=== PATIENT | female | born 1945 | race Caucasian/White ===

== ENCOUNTER → 2017-11-19 06:58 | Outpatient (CLI) | payer MEDICARE, BC, SELFPAY ==
[2017-11-19 07:39] LABS: Hemoglobin A1C% w Est Avg Glu 6.3 % (4.0-6.0)
[2017-11-19 07:41] LABS: BUN Creatinine Ratio 26.3 (6-22); Blood Urea Nitrogen 21 mg/dL (7-17); Cholesterol 179 mg/dL (140-199); Estimated Glomerular Filt Rate > 60.0 mL/min (>60); Glucose 124 mg/dL (80-110); HDL Cholesterol 57 mg/dL (40-60); LDL Cholesterol Calculated 106 mg/dL (<100); Triglycerides 78 mg/dL (35-150)
== END ==
PROVIDERS: PCP Family Medicine; Visit Provider Family Medicine
DX: E78.5 Hyperlipidemia, unspecified (principal)
CPT/HCPCS: 36415; 80061; 82565; 82947; 83036; 84520

== ENCOUNTER → 2018-09-03 09:35 | Outpatient (CLI) | payer MEDICARE, BC, SELFPAY ==
[2018-09-03 10:32] LABS: Add Manual Diff / Slide Review NO; Basophils Absolute Auto 0 /uL (0-100); Basophils Percent Auto 0.5 % (0-2); Eosinophils Absolute Auto 500 /uL (0-450); Eosinophils Percent Auto 7.8 % (2-4); Hematocrit 38.1 % (36-46); Hemoglobin 12.7 g/dL (12.0-16.0); Lymphocytes Absolute Auto 1800 /uL (1100-4500); Lymphocytes Percent Auto 27.9 % (25-40); Mean Corpuscular HGB Conc 33.2 % (30-36); Mean Corpuscular Hemoglobin 30.5 PG (26-34); Mean Corpuscular Volume 92.1 fL (80-100); Monocytes Absolute Auto 600 /uL (0-900); Monocytes Percent Auto 8.8 % (3-14); Neutrophils Absolute Auto 3500 /uL (1500-7000); Platelet Count 281 X10^3/uL (150-400); Red Blood Cell Count 4.14 X10^6/uL (4.0-5.2); Red Cell Distribution Width 13.8 % (11.6-14.8); White Blood Cell Count 6.4 X10^3/uL (4.5-11.0)
[2018-09-03 11:06] LABS: Alanine Aminotransferase 26 IU/L (9-52); Albumin 4.2 g/dL (3.5-5.0); Albumin Globulin Ratio 1.5 (1.0-2.8); Alkaline Phosphatase 67 U/L (38-126); Aspartate Aminotransferase 17 IU/L (14-36); Bilirubin Total 0.4 mg/dL (0.2-1.3); Blood Urea Nitrogen 16 mg/dL (7-17); Calcium 9.2 mg/dL (8.4-10.2); Carbon Dioxide 27 mmol/L (22-32); Chloride 104 mmol/L (98-107); Cholesterol 175 mg/dL (140-199); Estimated Glomerular Filt Rate > 60.0 mL/min (>60); Globulin 2.8 g/dL (1.7-4.1); Glucose 143 mg/dL (80-110); HDL Cholesterol 42 mg/dL (40-60); HEMOLYSIS < 15 (0-50); LDL Cholesterol Calculated 111 mg/dL (<100); Potassium 4.3 mmol/L (3.4-5.1); Sodium 139 mmol/L (137-145); Triglycerides 112 mg/dL (35-150)
[2018-09-03 11:34] LABS: TSH w/ Reflex to FT4 3.35 uIU/mL (0.47-4.68)
== END ==
PROVIDERS: PCP Family Medicine; Visit Provider Family Medicine
DX: E78.5 Hyperlipidemia, unspecified (principal); Z13.6 Encounter for screening for cardiovascular disorders
CPT/HCPCS: 36415; 80053; 80061; 84443; 85025

== ENCOUNTER → 2018-10-07 12:14 | Outpatient (CLI) | payer MEDICARE, BC, SELFPAY ==
[2018-10-07 14:15] LABS: Rubella Antibody IgG > 350.0 IU/mL (>15)
[2018-10-08 18:11] LABS: Rubeola Measles IgG > 300.00 AU/mL (< 25.00)
== END ==
PROVIDERS: PCP Family Medicine; Visit Provider Family Medicine
DX: Z01.84 Encounter for antibody response examination (principal)
CPT/HCPCS: 36415; 86735; 86762; 86765

== ENCOUNTER → 2019-02-20 09:50 | Outpatient (CLI) | payer MEDICARE, BC, SELFPAY ==
[2019-02-20 10:20] LABS: Add Manual Diff / Slide Review NO; Basophils Absolute Auto 100 /uL (0-100); Basophils Percent Auto 0.9 % (0-2); Eosinophils Absolute Auto 300 /uL (0-450); Eosinophils Percent Auto 5.3 % (2-4); Hematocrit 38.2 % (36-46); Hemoglobin 12.8 g/dL (12.0-16.0); Lymphocytes Absolute Auto 1600 /uL (1100-4500); Lymphocytes Percent Auto 25.3 % (25-40); Mean Corpuscular HGB Conc 33.5 % (30-36); Mean Corpuscular Hemoglobin 30.3 PG (26-34); Mean Corpuscular Volume 90.5 fL (80-100); Monocytes Absolute Auto 500 /uL (0-900); Monocytes Percent Auto 7.1 % (3-14); Neutrophils Absolute Auto 3900 /uL (1500-7000); Neutrophils Percent Auto 61.4 % (50-75); Platelet Count 332 X10^3/uL (150-400); Red Blood Cell Count 4.22 X10^6/uL (4.0-5.2); Red Cell Distribution Width 13.8 % (11.6-14.8); White Blood Cell Count 6.4 X10^3/uL (4.5-11.0)
[2019-02-20 10:33] LABS: Alanine Aminotransferase 19 IU/L (9-52); Albumin 4.2 g/dL (3.5-5.0); Albumin Globulin Ratio 1.5 (1.0-2.8); Alkaline Phosphatase 77 U/L (38-126); Aspartate Aminotransferase 21 IU/L (14-36); Bilirubin Total 0.5 mg/dL (0.2-1.3); Blood Urea Nitrogen 16 mg/dL (7-17); Carbon Dioxide 26 mmol/L (22-32); Chloride 105 mmol/L (98-107); Estimated Glomerular Filt Rate > 60.0 mL/min (>60); Globulin 2.8 g/dL (1.7-4.1); Glucose 149 mg/dL (80-110); HEMOLYSIS < 15 (0-50); Lipase 99 U/L (23-300); Potassium 4.1 mmol/L (3.4-5.1); Sodium 140 mmol/L (137-145)
--- NOTE | 2019-02-20 11:01 | DI.CT.S_ITS ---
PROCEDURE: CT ABDOMEN PELVIS W CON INDICATIONS: Epigastric and left lower quadrant pain. TECHNIQUE: After the administration of oral and intravenous contrast, 5 mm thick sections acquired from the diaphragms to the symphysis. 5 mm thick coronal and sagittal reformats were performed. For radiation dose reduction, the following was used: automated exposure control, adjustment of mA and/or kV according to patient size. COMPARISON: [facility], , BARIUM ENEMA W AIR CONTRAST, 02/25/2011, 8:58. [facility], , US PELVIC COMPLETE, 10/12/2018, 11:38. FINDINGS: Image quality: Excellent. ABDOMEN: Lung bases: There is a 2 mm noncalcified pulmonary nodule in the anterior right lower lobe on axial image 3 of series 3. Solid organs: 4 mm hypoechoic focus in the anterior superior left hepatic lobe on axial image 14 of series 2 is too small to fully characterize on this exam but likely represents a hepatic cyst or hemangioma. There is diffuse hypoattenuation consistent with hepatic steatosis. There is a 0.5 cm gallstone at the gallbladder neck. No CT evidence of acute cholecystitis. No intrahepatic or hepatic biliary ductal dilatation identified. The pancreas, spleen, and bilateral adrenal glands are unremarkable. No hydronephrosis or nephrolithiasis. Peritoneum and bowel: No free intraperitoneal air. Normal appendix seen on axial image 55 of series 2. There is diffuse diverticulosis of the descending and sigmoid colon. There is minimal fat stranding surrounding the distal sigmoid colon near the rectosigmoid junction and adjacent multiple diverticula. There is mild wall thickening of the sigmoid colon. No abdominal or pelvic abscess identified. Nodes and vessels: No retroperitoneal or mesenteric adenopathy. Aorta and inferior vena cava are normal in caliber. There is moderate to severe calcified and noncalcified plaque of the abdominal aorta and branch vessels. Miscellaneous: No ventral hernias. PELVIS: Genitourinary: Bladder wall thickness is normal. Uterus is present. There is a ring- shaped foreign body within the vagina, most consistent with a pessary. Miscellaneous: No inguinal hernias or adenopathy. Bones: No suspicious bony lesions. No vertebral body compression fractures. There are mild multilevel degenerative changes of the lumbar spine. IMPRESSION: 1. Minimal fat stranding surrounding the distal sigmoid colon with mild wall thickening of the sigmoid colon, which may represent a low-grade acute diverticulitis or colitis in the appropriate clinical setting. No abscess or free intraperitoneal air to suggest perforation identified. 2. 0.5 cm gallstone at the gallbladder neck, without evidence of acute cholecystitis. No intrahepatic or extra hepatic biliary ductal dilatation. 3. Findings consistent with diffuse hepatic steatosis. 4 mm hypoattenuating focus in the anterior superior left hepatic lobe is too small to fully characterize on this exam but likely represents a hepatic cyst or hemangioma; consider MRI if there is continued clinical concern. 4. 2 mm noncalcified pulmonary nodule of the anterior right lower lobe. Consider followup CT of the chest in 12 months if the patient has a history of risk factors for development of lung malignancy (such as a history of smoking). Dictated by: Thad Goss M.D. on 02/20/2019 at 21:36 Approved by: Thad Goss M.D. on 02/20/2019 at 22:13
== END ==
PROVIDERS: PCP Family Medicine; Visit Provider Family Medicine
DX: R10.13 Epigastric pain (principal); R10.32 Left lower quadrant pain; K80.80 Other cholelithiasis without obstruction; R91.1 Solitary pulmonary nodule
CPT/HCPCS: 36415; 74177; 80053; 83690; 85025; Q9967

== ENCOUNTER → 2019-03-07 08:09 | Outpatient (CLI) | payer MEDICARE, BC, SELFPAY ==
[2019-03-07 09:23] LABS: Hemoglobin A1C% w Est Avg Glu 6.4 % (4.0-6.0)
[2019-03-07 09:31] LABS: BUN Creatinine Ratio 22.5 (6-22); Blood Urea Nitrogen 18 mg/dL (7-17); Calcium 9.3 mg/dL (8.4-10.2); Carbon Dioxide 25 mmol/L (22-32); Chloride 105 mmol/L (98-107); Estimated Glomerular Filt Rate > 60.0 mL/min (>60); Glucose 133 mg/dL (80-110); HEMOLYSIS < 15 (0-50); Potassium 4.2 mmol/L (3.4-5.1); Sodium 138 mmol/L (137-145)
== END ==
PROVIDERS: PCP Family Medicine; Visit Provider Family Medicine
DX: E11.9 Type 2 diabetes mellitus without complications (principal)
CPT/HCPCS: 36415; 80048; 83036

== ENCOUNTER → 2019-12-18 15:19 | Outpatient (CLI) | payer MEDICARE, BC, SELFPAY ==
--- NOTE | 2019-12-18 15:26 | DI.RAD.S_ITS ---
PROCEDURE: XR FOOT LT MIN 3V INDICATIONS: heel pain TECHNIQUE: 3 views of the foot were acquired. COMPARISON: None. FINDINGS: Bones: No fractures or dislocations. No suspicious bony lesions. Mild osteoarthritis first MTP joint, without trauma. Soft tissues: No tibiotalar joint effusion. Achilles tendon appears normal. IMPRESSION: Source of calcaneal region pain is not found. Mild osteoarthritis at the first MTP joint. Dictated by: Abe Sorto M.D. on 12/18/2019 at 15:52 Approved by: Abe Sorto M.D. on 12/18/2019 at 15:53
== END ==
PROVIDERS: PCP Family Medicine; Referring Provider Family Medicine; Visit Provider Family Medicine
DX: M79.672 Pain in left foot (principal); M19.072 Primary osteoarthritis, left ankle and foot
CPT/HCPCS: 73630

== ENCOUNTER → 2020-02-23 08:23 | Outpatient (CLI) | payer MEDICARE, BC, SELFPAY ==
[2020-02-23 09:02] LABS: Add Manual Diff / Slide Review NO; Basophils Absolute Auto 0 /uL (0-100); Basophils Percent Auto 0.5 % (0-2); Eosinophils Absolute Auto 400 /uL (0-450); Eosinophils Percent Auto 5.7 % (2-4); Hematocrit 37.6 % (36-46); Hemoglobin 12.7 g/dL (12.0-16.0); Lymphocytes Absolute Auto 1500 /uL (1100-4500); Lymphocytes Percent Auto 22.5 % (25-40); Mean Corpuscular HGB Conc 33.7 % (30-36); Mean Corpuscular Hemoglobin 30.9 PG (26-34); Mean Corpuscular Volume 91.6 fL (80-100); Monocytes Absolute Auto 500 /uL (0-900); Monocytes Percent Auto 7.3 % (3-14); Neutrophils Absolute Auto 4300 /uL (1500-7000); Platelet Count 299 X10^3/uL (150-400); Red Cell Distribution Width 13.9 % (11.6-14.8); White Blood Cell Count 6.7 X10^3/uL (4.5-11.0)
[2020-02-23 09:15] LABS: Hemoglobin A1C% w Est Avg Glu 6.9 % (4.0-6.0)
[2020-02-23 09:20] LABS: Alanine Aminotransferase 23 IU/L (<35); Albumin 4.2 g/dL (3.5-5.0); Albumin Globulin Ratio 1.5 (1.0-2.8); Alkaline Phosphatase 67 U/L (38-126); Aspartate Aminotransferase 21 IU/L (14-36); BUN Creatinine Ratio 23.5 (6-22); Bilirubin Total 0.5 mg/dL (0.2-1.3); Blood Urea Nitrogen 19 mg/dL (7-17); Calcium 9.3 mg/dL (8.4-10.2); Carbon Dioxide 30 mmol/L (22-32); Chloride 106 mmol/L (98-107); Cholesterol 164 mg/dL (140-199); Estimated Glomerular Filt Rate > 60.0 mL/min (>60); Globulin 2.8 g/dL (1.7-4.1); Glucose 140 mg/dL (80-110); HDL Cholesterol 42 mg/dL (40-60); HEMOLYSIS < 15 (0-50); LDL Cholesterol Calculated 98 mg/dL (<100); Potassium 4.4 mmol/L (3.4-5.1); Sodium 140 mmol/L (137-145); Triglycerides 119 mg/dL (35-150)
[2020-02-23 09:49] LABS: TSH w/ Reflex to FT4 4.41 uIU/mL (0.47-4.68)
== END ==
PROVIDERS: PCP Family Medicine; Referring Provider Family Medicine; Visit Provider Family Medicine
DX: E11.9 Type 2 diabetes mellitus without complications (principal); E78.5 Hyperlipidemia, unspecified
CPT/HCPCS: 36415; 80053; 80061; 83036; 84443; 85025

== ENCOUNTER → 2020-08-29 10:51 | Outpatient (CLI) | payer MEDICARE, BC, SELFPAY ==
[2020-08-29 11:29] LABS: Creatinine Urine Random 84.7 mg/dL
[2020-08-29 11:37] LABS: Microalbumin Urine Random < 0.6 mg/dL (0-1.6)
[2020-08-29 12:10] LABS: Hemoglobin A1C% w Est Avg Glu 6.4 % (4.0-6.0)
[2020-08-29 12:13] LABS: BUN Creatinine Ratio 25.6 (6-22); Blood Urea Nitrogen 20 mg/dL (7-17); Calcium 9.8 mg/dL (8.4-10.2); Carbon Dioxide 23 mmol/L (22-32); Chloride 106 mmol/L (98-107); Estimated Glomerular Filt Rate > 60.0 mL/min (>60); Glucose 115 mg/dL (80-110); HEMOLYSIS < 15 (0-50); Potassium 4.1 mmol/L (3.4-5.1); Sodium 138 mmol/L (137-145)
== END ==
PROVIDERS: PCP Family Medicine; Referring Provider Family Medicine; Visit Provider Family Medicine
DX: E11.9 Type 2 diabetes mellitus without complications (principal); E78.5 Hyperlipidemia, unspecified
CPT/HCPCS: 36415; 80048; 82043; 82570; 83036

== ENCOUNTER → 2021-02-19 08:07 | Outpatient (CLI) | payer MEDICARE, BC, SELFPAY ==
[2021-02-19 09:40] LABS: Alanine Aminotransferase 18 IU/L (<35); Albumin 3.8 g/dL (3.5-5.0); Albumin Globulin Ratio 1.6 (1.0-2.8); Alkaline Phosphatase 67 U/L (38-126); Aspartate Aminotransferase 20 IU/L (14-36); BUN Creatinine Ratio 21.9 (6-22); Bilirubin Total 0.4 mg/dL (0.2-1.3); Blood Urea Nitrogen 16 mg/dL (7-17); Calcium 9.2 mg/dL (8.4-10.2); Carbon Dioxide 27 mmol/L (22-32); Chloride 108 mmol/L (98-107); Cholesterol 209 mg/dL (140-199); Estimated Glomerular Filt Rate > 60.0 mL/min (>60); Globulin 2.4 g/dL (1.7-4.1); Glucose 123 mg/dL (80-110); HDL Cholesterol 56 mg/dL (40-60); HEMOLYSIS < 15 (0-50); LDL Cholesterol Calculated 135 mg/dL (<100); Potassium 4.6 mmol/L (3.4-5.1); Sodium 139 mmol/L (137-145); Total Protein 6.2 g/dL (6.3-8.2); Triglycerides 88 mg/dL (35-150)
[2021-02-19 09:46] LABS: Add Manual Diff / Slide Review NO; Basophils Absolute Auto 0 /uL (0-100); Basophils Percent Auto 0.4 % (0-2); Eosinophils Absolute Auto 300 /uL (0-450); Eosinophils Percent Auto 5.1 % (2-4); Hematocrit 37.1 % (36-46); Hemoglobin 12.3 g/dL (12.0-16.0); Lymphocytes Absolute Auto 1900 /uL (1100-4500); Mean Corpuscular Hemoglobin 30.4 PG (26-34); Mean Corpuscular Volume 91.9 fL (80-100); Monocytes Absolute Auto 600 /uL (0-900); Neutrophils Absolute Auto 3800 /uL (1500-7000); Neutrophils Percent Auto 56.5 % (50-75); Platelet Count 278 X10^3/uL (150-400); Red Blood Cell Count 4.04 X10^6/uL (4.0-5.2); Red Cell Distribution Width 13.6 % (11.6-14.8); White Blood Cell Count 6.7 X10^3/uL (4.5-11.0)
[2021-02-19 10:19] LABS: TSH w/ Reflex to FT4 3.37 uIU/mL (0.47-4.68)
== END ==
PROVIDERS: PCP Family Medicine; Referring Provider Family Medicine; Visit Provider Family Medicine
DX: E11.9 Type 2 diabetes mellitus without complications (principal); E78.2 Mixed hyperlipidemia
CPT/HCPCS: 36415; 80053; 80061; 83036; 84443; 85025

== ENCOUNTER → 2021-08-20 07:15 | Outpatient (CLI) | payer MEDICARE, BC, SELFPAY ==
[2021-08-20 08:39] LABS: Hemoglobin A1C% w Est Avg Glu 6.5 % (4.0-6.0)
[2021-08-20 08:53] LABS: BUN Creatinine Ratio 26.9 (6-22); Blood Urea Nitrogen 21 mg/dL (7-17); Calcium 9.4 mg/dL (8.4-10.2); Carbon Dioxide 33 mmol/L (22-32); Chloride 104 mmol/L (98-107); Cholesterol 185 mg/dL (140-199); Estimated Glomerular Filt Rate > 60.0 mL/min (>60); Glucose 144 mg/dL (80-110); HDL Cholesterol 52 mg/dL (40-60); HEMOLYSIS < 15 (0-50); LDL Cholesterol Calculated 114 mg/dL (<100); Potassium 4.4 mmol/L (3.4-5.1); Sodium 139 mmol/L (137-145); Triglycerides 94 mg/dL (35-150)
[2021-08-20 10:27] LABS: Microalbumi Creatinin Ratio Ur 11.4 ug/mg CR (<30); Microalbumin Urine Random 0.7 mg/dL (0-1.6)
== END ==
PROVIDERS: PCP Family Medicine; Referring Provider Family Medicine; Visit Provider Family Medicine
DX: E11.9 Type 2 diabetes mellitus without complications (principal); E78.2 Mixed hyperlipidemia; Z00.00 Encounter for general adult medical examination without abnormal findings; Z13.9 Encounter for screening, unspecified
CPT/HCPCS: 36415; 80048; 80061; 82043; 82570; 83036

== ENCOUNTER → 2022-02-19 07:05 | Outpatient (CLI) | payer MEDICARE, BC, SELFPAY ==
[2022-02-19 07:57] LABS: Add Manual Diff / Slide Review NO; Basophils Absolute Auto 100 /uL (0-100); Basophils Percent Auto 0.9 % (0-2); Eosinophils Absolute Auto 500 /uL (0-450); Hematocrit 36.1 % (36-46); Hemoglobin 12.2 g/dL (12.0-16.0); Lymphocytes Absolute Auto 1800 /uL (1100-4500); Lymphocytes Percent Auto 26.9 % (25-40); Mean Corpuscular HGB Conc 33.8 % (30-36); Mean Corpuscular Hemoglobin 30.8 PG (26-34); Mean Corpuscular Volume 91.1 fL (80-100); Monocytes Absolute Auto 600 /uL (0-900); Monocytes Percent Auto 8.7 % (3-14); Neutrophils Absolute Auto 3700 /uL (1500-7000); Neutrophils Percent Auto 56.5 % (50-75); Platelet Count 274 X10^3/uL (150-400); Red Blood Cell Count 3.96 X10^6/uL (4.0-5.2); Red Cell Distribution Width 13.6 % (11.6-14.8); White Blood Cell Count 6.5 X10^3/uL (4.5-11.0)
[2022-02-19 08:16] LABS: Hemoglobin A1C% w Est Avg Glu 6.5 % (4.0-6.0)
[2022-02-19 08:48] LABS: Alanine Aminotransferase 17 IU/L (<35); Albumin Globulin Ratio 1.4 (1.0-2.8); Alkaline Phosphatase 61 U/L (38-126); Aspartate Aminotransferase 21 IU/L (14-36); Bilirubin Total 0.5 mg/dL (0.2-1.3); Blood Urea Nitrogen 20 mg/dL (7-17); Carbon Dioxide 26 mmol/L (22-32); Chloride 106 mmol/L (98-107); Cholesterol 169 mg/dL (140-199); Estimated Glomerular Filt Rate > 60 mL/min (>60); Globulin 2.8 g/dL (1.7-4.1); Glucose 126 mg/dL (80-110); HDL Cholesterol 53 mg/dL (40-60); HEMOLYSIS < 15 (0-50); LDL Cholesterol Calculated 99 mg/dL (<100); Potassium 4.1 mmol/L (3.4-5.1); Sodium 138 mmol/L (137-145); Total Protein 6.8 g/dL (6.3-8.2); Triglycerides 83 mg/dL (35-150)
[2022-02-19 09:15] LABS: Thyroid Stimulating Hormone 5.09 uIU/mL (0.47-4.68)
== END ==
PROVIDERS: PCP Family Medicine; Referring Provider Family Medicine; Visit Provider Family Medicine
DX: E11.9 Type 2 diabetes mellitus without complications (principal); E78.2 Mixed hyperlipidemia
CPT/HCPCS: 36415; 80053; 80061; 83036; 84443; 85025

== ENCOUNTER → 2022-08-17 06:44 | Outpatient (CLI) | payer MEDICARE, BC, SELFPAY ==
[2022-08-17 08:13] LABS: Add Manual Diff / Slide Review NO; Basophils Absolute Auto 0 /uL (0-100); Basophils Percent Auto 0.6 % (0-2); Eosinophils Absolute Auto 300 /uL (0-450); Eosinophils Percent Auto 4.7 % (2-4); Hematocrit 37.2 % (36-46); Hemoglobin 12.7 g/dL (12.0-16.0); Lymphocytes Absolute Auto 1800 /uL (1100-4500); Mean Corpuscular HGB Conc 34.1 % (30-36); Mean Corpuscular Hemoglobin 30.7 PG (26-34); Mean Corpuscular Volume 90.2 fL (80-100); Monocytes Absolute Auto 600 /uL (0-900); Neutrophils Absolute Auto 4400 /uL (1500-7000); Neutrophils Percent Auto 61.7 % (50-75); Platelet Count 321 X10^3/uL (150-400); Red Blood Cell Count 4.12 X10^6/uL (4.0-5.2); Red Cell Distribution Width 13.3 % (11.6-14.8); White Blood Cell Count 7.1 X10^3/uL (4.5-11.0)
[2022-08-17 08:23] LABS: Hemoglobin A1C% w Est Avg Glu 6.4 % (4.0-6.0)
[2022-08-17 08:34] LABS: Alanine Aminotransferase 20 IU/L (<35); Albumin 4.2 g/dL (3.5-5.0); Albumin Globulin Ratio 1.4 (1.0-2.8); Alkaline Phosphatase 76 U/L (38-126); Aspartate Aminotransferase 22 IU/L (14-36); BUN Creatinine Ratio 19.2 (6-22); Bilirubin Total 0.5 mg/dL (0.2-1.3); Blood Urea Nitrogen 15 mg/dL (7-17); Calcium 9.2 mg/dL (8.4-10.2); Carbon Dioxide 28 mmol/L (22-32); Chloride 104 mmol/L (98-107); Cholesterol 187 mg/dL (140-199); Estimated Glomerular Filt Rate > 60 mL/min (>60); Glucose 134 mg/dL (80-110); HDL Cholesterol 44 mg/dL (40-60); HEMOLYSIS < 15 (0-50); LDL Cholesterol Calculated 122 mg/dL (<100); Potassium 4.3 mmol/L (3.4-5.1); Sodium 140 mmol/L (137-145); Total Protein 7.2 g/dL (6.3-8.2); Triglycerides 106 mg/dL (35-150)
[2022-08-17 09:02] LABS: TSH w/ Reflex to FT4 4.96 uIU/mL (0.47-4.68)
[2022-08-17 09:29] LABS: Free T4, Direct Thyroxine 1.13 ng/dL (0.78-2.19)
== END ==
PROVIDERS: PCP Family Medicine; Referring Provider Family Medicine; Visit Provider Family Medicine
DX: E11.9 Type 2 diabetes mellitus without complications (principal); E78.2 Mixed hyperlipidemia
CPT/HCPCS: 36415; 80053; 80061; 83036; 84439; 84443; 85025

== ENCOUNTER → 2023-03-29 14:49 | Outpatient (CLI) | payer MEDICARE, BC, SELFPAY ==
[2023-03-29 16:35] LABS: Creatinine Urine Random 75.3 mg/dL
[2023-03-29 16:42] LABS: Microalbumin Urine Random < 0.6 mg/dL (0-1.6)
[2023-03-29 16:51] LABS: Thyroid Stimulating Hormone 3.42 uIU/mL (0.47-4.68)
[2023-03-29 20:50] LABS: Hemoglobin A1C% w Est Avg Glu 6.5 % (4.0-6.0)
== END ==
PROVIDERS: PCP Family Medicine; Referring Provider Family Medicine; Visit Provider Family Medicine
DX: E11.9 Type 2 diabetes mellitus without complications (principal); R89.9 Unspecified abnormal finding in specimens from other organs, systems and tissues
CPT/HCPCS: 36415; 82043; 82570; 83036; 84443

== ENCOUNTER → 2023-09-28 13:45 | Outpatient (CLI) | payer MEDICARE, BC, SELFPAY | PROVIDERS: PCP Family Medicine; Referring Provider Family Medicine; Visit Provider Family Medicine | DX: E11.9 Type 2 diabetes mellitus without complications (principal) | CPT/HCPCS: 36415; 83036 ==

== ENCOUNTER → 2023-10-21 11:00 | Outpatient (CLI) | payer MEDICARE, BC, SELFPAY ==
--- NOTE | 2023-10-21 11:01 | DI.CT.S_ITS ---
PROCEDURE: CT CHEST WO CON INDICATIONS: cough hx of breast cancer TECHNIQUE: Noncontrast 5 mm thick sections acquired from the pulmonary apices to the posterior costophrenic angles. 1 mm lung window, 5 mm thick coronal and sagittal and 7 mm axial MIP reformats were then acquired. For radiation dose reduction, the following was used: automated exposure control, adjustment of mA and/or kV according to patient size. COMPARISON: [facility], CT, CT ABDOMEN PELVIS W CON, 02/20/2019, 11:09. FINDINGS: Image quality: Diagnostic. Evaluation of the solid parenchymal organs is limited without IV contrast. Lower Neck: No enlarged lymph nodes. Thyroid: No thyroid nodules which require sonographic follow up, per consensus guidelines. Axillae: No enlarged lymph nodes. Chest Wall: Breast implants. Bones: No suspicious osseous lesion. Lungs and Pleura: No pneumothorax or pleural effusions. No consolidation or suspicious nodules. Several calcified granulomas. A few pulmonary nodules measuring 0.4 cm or less. Heart: Heart size is normal. [id number] coronary artery calcifications. No pericardial effusion. Thoracic Vessels: The aorta and pulmonary arteries demonstrate normal size. Mediastinum and Mckenna: No enlarged lymph nodes. Esophagus: No wall thickening. No hiatal hernia. Upper Abdomen: Gallstone measuring 0.9 cm. IMPRESSION: No metastatic disease. No adenopathy seen. Gallstone. Dictated by: Angelo Matthews M.D. on 10/21/2023 at 12:10 Approved by: Angelo Matthews M.D. on 10/21/2023 at 12:16
== END ==
PROVIDERS: PCP Family Medicine; Referring Provider Family Medicine; Visit Provider Family Medicine
DX: C50.919 Malignant neoplasm of unspecified site of unspecified female breast (principal); R05.3 Chronic cough; I25.10 Atherosclerotic heart disease of native coronary artery without angina pectoris; K80.20 Calculus of gallbladder without cholecystitis without obstruction; R91.8 Other nonspecific abnormal finding of lung field
CPT/HCPCS: 71250

== ENCOUNTER → 2024-03-22 08:01 | Outpatient (CLI) | payer MEDICARE, BC, SELFPAY ==
[2024-03-22 09:37] LABS: Add Manual Diff / Slide Review NO; Basophils Absolute Auto 0 /uL (0-100); Basophils Percent Auto 0.6 % (0-2); Eosinophils Absolute Auto 700 /uL (0-450); Eosinophils Percent Auto 9.8 % (2-4); Hematocrit 36.4 % (36-46); Hemoglobin 12.2 g/dL (12.0-16.0); Lymphocytes Absolute Auto 1700 /uL (1100-4500); Lymphocytes Percent Auto 23.7 % (25-40); Mean Corpuscular HGB Conc 33.6 % (30-36); Mean Corpuscular Hemoglobin 30.4 PG (26-34); Mean Corpuscular Volume 90.5 fL (80-100); Monocytes Absolute Auto 600 /uL (0-900); Neutrophils Absolute Auto 4000 /uL (1500-7000); Neutrophils Percent Auto 56.9 % (50-75); Platelet Count 324 X10^3/uL (150-400); Red Blood Cell Count 4.02 X10^6/uL (4.0-5.2); Red Cell Distribution Width 14.5 % (11.6-14.8); White Blood Cell Count 7.1 X10^3/uL (4.5-11.0)
[2024-03-22 09:59] LABS: Alanine Aminotransferase 18 IU/L (<35); Albumin 3.8 g/dL (3.5-5.0); Albumin Globulin Ratio 1.4 (1.0-2.8); Alkaline Phosphatase 72 U/L (38-126); Aspartate Aminotransferase 21 IU/L (14-36); BUN Creatinine Ratio 24.3 (6-22); Bilirubin Total 0.5 mg/dL (0.2-1.3); Blood Urea Nitrogen 17 mg/dL (7-17); Calcium 9.2 mg/dL (8.4-10.2); Carbon Dioxide 26 mmol/L (22-32); Chloride 106 mmol/L (98-107); Cholesterol 185 mg/dL (140-199); Estimated Glomerular Filt Rate > 60 mL/min (>60); Globulin 2.7 g/dL (1.7-4.1); Glucose 139 mg/dL (80-110); HDL Cholesterol 52 mg/dL (40-60); HEMOLYSIS < 15 (0-50); LDL Cholesterol Calculated 112 mg/dL (<100); Potassium 4.5 mmol/L (3.4-5.1); Sodium 136 mmol/L (137-145); Total Protein 6.5 g/dL (6.3-8.2); Triglycerides 105 mg/dL (35-150)
[2024-03-22 10:48] LABS: Free T4, Direct Thyroxine 0.91 ng/dL (0.78-2.19)
[2024-03-22 11:18] LABS: Hemoglobin A1C% w Est Avg Glu 6.6 % (4.0-6.0)
== END ==
PROVIDERS: PCP Family Medicine; Referring Provider Family Medicine; Visit Provider Family Medicine
DX: C50.919 Malignant neoplasm of unspecified site of unspecified female breast (principal); E11.9 Type 2 diabetes mellitus without complications; K57.90 Diverticulosis of intestine, part unspecified, without perforation or abscess without bleeding
CPT/HCPCS: 36415; 80053; 80061; 83036; 84439; 84443; 85025

== ENCOUNTER → 2024-04-03 09:50 | Outpatient (CLI) | payer MEDICARE, BC, SELFPAY ==
--- NOTE | 2024-04-03 09:52 | DI.US.S_ITS ---
PROCEDURE: US PELVIC COMPLETE INDICATIONS: FAMILY HX UTERINE CANCER TECHNIQUE: Real-time scanning was performed of the pelvic organs, with image documentation. Additional endovaginal scanning was necessary due to incomplete visualization of the adnexal and endometrial structures by transabdominal scanning. COMPARISON: [facility], US, US PELVIC COMPLETE, 02/02/2020, 8:55. FINDINGS: Uterus: Uterus is anteverted and normal in size at 5.1 x 3.5 x 3.7 cm. The myometrium is homogeneous. The endometrium measures 4.9 mm combined thickness. No uterine fibroids. Ovaries: The ovaries are not seen. Other: No pathologic free abdominal or pelvic fluid. IMPRESSION: Normal appearance of the uterus and endometrium. The ovaries are not visualized. We strive to produce accurate, complete, and clear reports of imaging services. To assist us in improving patient care, this report was composed using standard report templates and voice recognition software. Therefore, it may contain abnormal punctuation, insertions and/or omissions. Occasional wrong-word or sound-alike substitutions may occur. Though we review the report and make efforts to correct it, we do recommend that the report be read carefully in proper context to recognize any text inaccuracies. Dictated by: Kwabena Martinez M.D. on 04/03/2024 at 11:26 Approved by: Kwabena Martinez M.D. on 04/03/2024 at 11:45
== END ==
PROVIDERS: PCP Family Medicine; Referring Provider Family Medicine; Visit Provider Family Medicine
DX: D25.9 Leiomyoma of uterus, unspecified (principal)
CPT/HCPCS: 76830; 76856

== ENCOUNTER → 2024-09-14 15:22 | Outpatient (CLI) | payer MEDICARE, BC, SELFPAY ==
[2024-09-14 16:28] LABS: Hemoglobin A1C% w Est Avg Glu 6.5 % (4.0-6.0)
[2024-09-14 16:46] LABS: BUN Creatinine Ratio 23.9 (6-22); Blood Urea Nitrogen 22 mg/dL (7-17); Calcium 9.4 mg/dL (8.4-10.2); Carbon Dioxide 25 mmol/L (22-32); Chloride 104 mmol/L (98-107); Estimated Glomerular Filt Rate > 60 mL/min (>60); Glucose 146 mg/dL (80-110); HEMOLYSIS < 15 (0-50); Potassium 4.1 mmol/L (3.4-5.1); Sodium 138 mmol/L (137-145)
[2024-09-14 17:16] LABS: TSH w/ Reflex to FT4 5.67 uIU/mL (0.47-4.68)
[2024-09-14 18:35] LABS: Free T4, Direct Thyroxine 0.98 ng/dL (0.78-2.19)
== END ==
PROVIDERS: PCP Family Medicine; Referring Provider Family Medicine; Visit Provider Family Medicine
DX: E11.9 Type 2 diabetes mellitus without complications (principal); E78.2 Mixed hyperlipidemia; F33.41 Major depressive disorder, recurrent, in partial remission; E03.8 Other specified hypothyroidism
CPT/HCPCS: 36415; 80048; 83036; 84439; 84443

== ENCOUNTER 2024-09-14 17:12 | Emergency (ER) | payer MEDICARE, BC, SELFPAY ==
[2024-09-14] VITALS (9 sets, daily range): BP systolic 145–196; BP diastolic 68–110; PULSE 60–89; RESP 10–24; TEMP 37; O2SAT 94–97; BMI 31.6
--- NOTE | 2024-09-14 17:27 | DI.RAD.S_ITS ---
PROCEDURE: XR CHEST 1V INDICATIONS: chest pain TECHNIQUE: One view of the chest was acquired. COMPARISON: None. FINDINGS: Surgical changes and devices: None. Lungs and pleura: Increased pulmonary markings. Mediastinum: Mediastinal contours appear normal. Heart size is enlarged. Bones and chest wall: No suspicious bony lesions. Overlying soft tissues appear unremarkable. IMPRESSION: Suspected mild pulmonary edema. Dictated by: Leroy Ferrari M.D. on 09/14/2024 at 17:52 Approved by: Leroy Ferrari M.D. on 09/14/2024 at 17:53
--- NOTE | 2024-09-14 17:30 | EKG_ITS ---
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
[2024-09-14 17:52] LABS: Add Manual Diff / Slide Review NO; Basophils Absolute Auto 100 /uL (0-100); Basophils Percent Auto 0.5 % (0-2); Eosinophils Absolute Auto 600 /uL (0-450); Hematocrit 35.4 % (36-46); Hemoglobin 11.9 g/dL (12.0-16.0); Lymphocytes Absolute Auto 2300 /uL (1100-4500); Lymphocytes Percent Auto 20.5 % (25-40); Mean Corpuscular HGB Conc 33.5 % (30-36); Mean Corpuscular Hemoglobin 30.4 PG (26-34); Mean Corpuscular Volume 90.5 fL (80-100); Monocytes Absolute Auto 900 /uL (0-900); Monocytes Percent Auto 8.1 % (3-14); Neutrophils Absolute Auto 7300 /uL (1500-7000); Neutrophils Percent Auto 65.9 % (50-75); Platelet Count 308 X10^3/uL (150-400); Red Blood Cell Count 3.91 X10^6/uL (4.0-5.2); Red Cell Distribution Width 13.5 % (11.6-14.8)
[2024-09-14 18:05] LABS: Prothrombin Time 11.3 SECONDS (9.4-12.5)
[2024-09-14 18:07] LABS: PTT Partial Thromboplastin Tim 38 SECONDS (25.1-36.5)
[2024-09-14 18:12] LABS: Alanine Aminotransferase 20 IU/L (<35); Albumin 4.5 g/dL (3.5-5.0); Albumin Globulin Ratio 1.5 (1.0-2.8); Alkaline Phosphatase 93 U/L (38-126); Aspartate Aminotransferase 22 IU/L (14-36); BUN Creatinine Ratio 25.3 (6-22); Bilirubin Total 0.5 mg/dL (0.2-1.3); Blood Urea Nitrogen 22 mg/dL (7-17); Calcium 9.4 mg/dL (8.4-10.2); Carbon Dioxide 24 mmol/L (22-32); Chloride 105 mmol/L (98-107); Creatine Kinase 55 U/L (30-135); Estimated Glomerular Filt Rate > 60 mL/min (>60); Glucose 167 mg/dL (80-110); HEMOLYSIS < 15 (0-50); Lipase 204 U/L (23-300); Magnesium 2.1 mg/dL (1.6-2.3); Sodium 139 mmol/L (137-145); Total Protein 7.5 g/dL (6.3-8.2)
[2024-09-14 18:23] LABS: NT-proBNP (BNP-Adult 18+) 181 pg/mL (<450); Troponin I < 0.012 ng/mL (0.01-0.034)
[2024-09-14] MEDS: ASPIRIN 81 MG CHEW TAB 324 MG PO (20:24)
[2024-09-14 20:30] LABS: Troponin I < 0.012 ng/mL (0.01-0.034)
--- NOTE | 2024-09-14 21:36 | ED_ITS ---
HPI - Chest Pain General Chief Complaint: Chest Pain Stated Complaint: chest and lt shoulder pain x 2 days Time Seen by Provider: 09/14/24 21:35 Source: patient, RN notes reviewed and old records reviewed Mode of arrival: Ambulatory Limitations: no limitations Limitations: no limitations History of Present Illness HPI narrative: 79-year-old female history of diabetes, dyslipidemia, asthma Left-sided chest pain radiates in her arm and around to the back. Patient states has been persistent for 2 or 3 days has not resolved until earlier. She states started with some indigestion with radiation to the back in the interscapular area has been worse with movement of her left shoulder. She states being still seems to help it. She was not had any shortness of breath. No fevers or chills. No nausea or vomiting no issues with bowel movements no numbness tingling weakness of extremities. Swelling of her extremities. Has not had similar symptoms in the past. No trauma or injuries. States that she takes a statin, uses inhaler and Flonase, metformin and daily antihistamine, she takes losartan for renal protective not blood pressure. No estrogen. Has had history of bilateral mastectomy in 1989 for breast cancer. No prior cardiac issues or interventions. No prior surgeries. No known drug allergies. No tobacco has 1 or 2 alcoholic drinks daily no recreational drugs other than occasional edible. Patient notes pain has since resolved. Related Data Previous Rx's Medication Instructions Recorded estradiol 2 mg (7.5 mcg/24 hour) 7.5 mcg vaginal Q 3 MONTHS #1 ea 05/13/20 vaginal ring (Estring) losartan 25 mg tablet 25 mg PO DAILY #90 tabs 12/20/23 metformin 500 mg tablet 1,000 mg (2 x 500 mg) PO DAILY 12/20/23 #180 tabs ciclopirox 8 % topical solution 1 applic topical BEDTIME 6 months 04/03/24 #6.6 mL albuterol sulfate 90 mcg/actuation 2 puff inhalation Q4-6H PRN for 08/28/24 aerosol inhaler wheezing #6.7 grams atorvastatin 20 mg tablet 20 mg PO DAILY #90 tabs 08/28/24 fluticasone 100 mcg-salmeterol 50 See Rx Instructions .Route 08/28/24 mcg/dose blistr powdr for .COMPLEX #180 grams inhalation (Wixela Inhub) sertraline 50 mg tablet 50 mg PO DAILY #90 tabs 08/28/24 zaleplon 5 mg capsule 5 mg PO BEDTIME PRN sleep #10 caps 09/05/24 Allergies Allergy/AdvReac Type Severity Reaction Status Date / Time No Known Drug Allergies Allergy Verified 03/27/24 09:29 Review of Systems Review of Systems ROS Unobtainable: All systems reviewed & are unremarkable except as noted in HPI and below Patient History Medical History Diabetes type 2, controlled Diverticulosis Knee pain (~2014) Tuberculosis Abnormal Pap smear of cervix (~1977) Asthma (1946) Chicken pox (1947) Mumps (~1954) Rubella (1964) Measles Eczema Depression (~1954) Hayfever (1946) Breast cancer (1991) Endometrial thickening on ultrasound (~2017) Surgical History Status post hysteroscopy (09/17/17) Status post D&C (09/17/17) Anesthesia History of mastectomy (1991) History of tonsillectomy (1947) Family History Father Stroke Grandmother Breast cancer Colon cancer Liver disease Mother Breast cancer Heart disease High cholesterol Grandfather Heart disease Rheumatic fever Grandmother Stroke Sister Age: 72 Diabetes mellitus Brother No problems noted. Grandfather Heart attack Sister Poor balance Social History marital status: Smoking Status: Never smoker alcohol intake: current substance use type: does not use Smoking Status: Never smoker Exam Narrative Exam Narrative: GENERAL: Alert and oriented x three, HEENT: Head normocephalic, atraumatic, EOMI, pupils reactive, face symmetric, moist mucous membranes NECK: Supple, full range of motion CARDIOVASCULAR: Regular rate and rhythm without murmurs, rubs or gallops. No JVD. No edema. RESPIRATORY: Breath sounds equal bilaterally, no wheezes rales or rhonchi. No tachypnea or accessory muscle use. ABDOMEN: Soft, nontender. Normoactive bowel sounds all 4 quadrants. No guarding or rebound, rigidity, no mass : No CVA tenderness EXTREMITIES: Normal range of motion, no clubbing or edema. Neurovascularly intact. +pulses bilateral upper extremities. NEUROLOGICAL: Cranial nerves II through XII grossly intact. Moving all extremities SKIN: Warm, dry, no petechiae, no rashes or lesions. Initial Vital Signs Initial Vital Signs: Vital Signs Temperature 98.6 F 09/14/24 17:23 Pulse Rate 89 09/14/24 17:23 Respiratory Rate 18 09/14/24 17:23 Blood Pressure 196/110 H 09/14/24 17:23 Pulse Oximetry 97 09/14/24 17:23 Oxygen Delivery Method Room Air 09/14/24 17:23 Course Orders Ordered: ED Orders 09/14/24 19:55 Troponin I Stat Discontinued Medications Aspirin (Aspirin 81 Mg Chew Tab) 324 mg PO NOW ONE Stop: 09/14/24 17:27 Last Admin: 09/14/24 20:24 Dose: 324 mg Documented By: VICKIE Vital Signs Vital signs: Vital Signs - 8 hr 09/14/24 19:54 09/14/24 19:55 09/14/24 19:55 Pulse Rate 73 72 Respiratory Rate 19 21 Blood Pressure 179/84 H Pulse Oximetry 96 97 09/14/24 20:00 09/14/24 20:00 09/14/24 20:30 Pulse Rate 69 Respiratory Rate 19 Blood Pressure 145/72 H 183/77 H Pulse Oximetry 95 09/14/24 20:30 09/14/24 21:00 09/14/24 21:00 Pulse Rate 66 60 Respiratory Rate 12 10 L Blood Pressure 178/81 H Pulse Oximetry 94 95 09/14/24 21:30 09/14/24 21:30 09/14/24 22:00 Pulse Rate 62 Respiratory Rate 10 L Blood Pressure 158/68 H 174/78 H Pulse Oximetry 95 09/14/24 22:00 09/14/24 22:30 09/14/24 22:30 Pulse Rate 65 75 Respiratory Rate 12 24 Blood Pressure 157/73 H Pulse Oximetry 95 96 MDM - Chest Pain Lab Data 09/14/24 17:43 09/14/24 17:43 Labs: Lab Results 09/14/24 09/14/24 Range/Units 17:43 19:55 WBC 11.0 (4.5-11.0) X10^3/uL RBC 3.91 L (4.0-5.2) X10^6/uL Hgb 11.9 L (12.0-16.0) g/dL Hct 35.4 L (36-46) % MCV 90.5 (80-100) fL MCH 30.4 (26-34) PG MCHC 33.5 (30-36) % RDW 13.5 (11.6-14.8) % Plt Count 308 (150-400) X10^3/uL Neut % (Auto) 65.9 (50-75) % Lymph % (Auto) 20.5 L (25-40) % Jenkins % (Auto) 8.1 (3-14) % Eos % (Auto) 5.0 H (2-4) % Baso % (Auto) 0.5 (0-2) % Neut # (Auto) 7300 H (4767-4237) /uL Lymph # (Auto) 2300 (4002-0883) /uL Jenkins # (Auto) 900 (0-900) /uL Eos # (Auto) 600 H (0-450) /uL Baso # (Auto) 100 (0-100) /uL PT 11.3 (9.4-12.5) SECONDS INR 1.0 (0.9-1.3) APTT 38 H (25.1-36.5) SECONDS Sodium 139 (137-145) mmol/L Potassium 4.0 (3.4-5.1) mmol/L Chloride 105 (98-107) mmol/L Carbon Dioxide 24 (22-32) mmol/L BUN 22 H (7-17) mg/dL Creatinine 0.87 (0.52-1.04) mg/dL Estimated GFR > 60 (>60) mL/min BUN/Creatinine Ratio 25.3 H (6-22) Glucose 167 H (80-110) mg/dL Calcium 9.4 (8.4-10.2) mg/dL Magnesium 2.1 (1.6-2.3) mg/dL Total Bilirubin 0.5 (0.2-1.3) mg/dL AST 22 (14-36) IU/L ALT 20 (<35) IU/L Alkaline Phosphatase 93 (38-126) U/L Total Creatine Kinase 55 (30-135) U/L Troponin I < 0.012 < 0.012 (0.01-0.034) ng/mL NT-Pro-B Natriuret Pep 181 (<450) pg/mL Total Protein 7.5 (6.3-8.2) g/dL Albumin 4.5 (3.5-5.0) g/dL Globulin 3.0 (1.7-4.1) g/dL Albumin/Globulin Ratio 1.5 (1.0-2.8) Lipase 204 (23-300) U/L ECG Data Attestation: I personally reviewed and interpreted this ECG as follows: Prior ECG tracings: not available for review Interpretation: Sinus rhythm patient has P wave with each QRS is sometimes biphasic rate of 78, VA 146 QRS 86 QTC of 467, nonspecific change. Patient was Q-waves in 2 3 and AVF and 1 and aVL has not inverted T-waves. No prior for comparison MDM Narrative Medical decision making narrative: EKG sinus rhythm left axis deviation Q-waves in 2 3, T-waves inverted in 1 and aVL. No priors for comparison. Labs show hemoglobin 11.9 has been in the 12 range in the past, white count 11, platelets are 308. INR is 1 electrolytes are appropriate BUN 22 glucose is 167 LFTs are negative lipase is normal, troponins less than 0.012 with a repeat troponin of less than 0.012 and a BNP of 181. Chest x-ray shows increased pulmonary markings. Suspect pulmonary edema. 79-year-old female with chest pain that radiates towards her back and left shoulder was worse with movement has since resolved. Lasted about 2-3 days notes any kind of movement of her shoulder made it much worse. Was persistent without any resolution until this evening. Reviewed findings with patient did discuss we would not fully evaluated for pulmonary embolism but suspicion was lower based on patient's musculoskeletal component. It has since resolved. Patient would like to return home she was follow up with her primary care physician in the next few days. Discharge Plan Departure Patient Disposition: Home Clinical Impression: Atypical chest pain Instructions: DI for Atypical Chest Pain Activity Restrictions/Additional Instructions: Follow up with your primary care physician for recheck at your upcoming appointment. I hope you continue to feel improved. Please return for new chest pain, shortness of breath, lightheadedness or passing out, fevers, nausea or vomiting, new swelling of your extremities or other new or concerning changes. Prescriptions: No Action Estring 2 mg (7.5 mcg /24 hour) ring 7.5 mcg vaginal Q 3 MONTHS Qty: 1 1RF metformin 500 mg tablet 1,000 mg PO DAILY Qty: 180 3RF losartan 25 mg tablet 25 mg PO DAILY Qty: 90 3RF ciclopirox 8 % solution 1 applic topical BEDTIME 180 Days Qty: 6.6 0RF Rx Instructions: Apply to affected toenail(s) and adjacent skin nightly in combination with weekly nail trimming and periodic nail debridement. Remove with alcohol every 7 days; continue therapy until nail clearance (maximum duration: 48 weeks) fluticasone propion-salmeterol [Wixela Inhub] 100-50 mcg/dose blister with device See Rx Instructions .ROUTE .COMPLEX Qty: 180 3RF Dose Instruction: USE 1 INHALATION ORALLY TWICE DAILY Rx Instructions: USE 1 INHALATION ORALLY TWICE DAILY sertraline 50 mg tablet 50 mg PO DAILY Qty: 90 3RF atorvastatin 20 mg tablet 20 mg PO DAILY Qty: 90 3RF albuterol sulfate 90 mcg/actuation HFA aerosol inhaler 2 puff inhalation Q4-6H PRN (Reason: for wheezing) Qty: 6.7 3RF zaleplon 5 mg capsule 5 mg PO BEDTIME PRN (Reason: sleep) Qty: 10 0RF Referrals: Gian Navarrete MD [Primary Care Provider] - Stand Alone Forms: Patient Portal/API/Survey
== END 2024-09-14 22:40 | disposition home or self-care (01) ==
PROVIDERS: Emergency Medicine; Emergency Provider Emergency Medicine; PCP Family Medicine
DX: R07.89 Other chest pain (principal); E11.9 Type 2 diabetes mellitus without complications; E78.2 Mixed hyperlipidemia; F33.41 Major depressive disorder, recurrent, in partial remission; E03.8 Other specified hypothyroidism
CPT/HCPCS: 36415; 71045; 80048; 80053; 82550; 83036; 83690; 83735; 83880; 84439; 84443; 84484; 85025; 85610; 85730; 93005; 99284

== ENCOUNTER → 2024-09-25 13:22 | Outpatient (CLI) | payer MEDICARE, BC, SELFPAY ==
--- NOTE | 2024-09-25 13:24 | DI.CT.S_ITS ---
PROCEDURE: CT ABDOMEN PELVIS W CON INDICATIONS: epigastric pain with diverticulosis TECHNIQUE: After the administration of intravenous contrast, axial sections acquired from the lung bases to the pubic symphysis. Coronal and sagittal reformats were performed. For radiation dose reduction, the following was used: automated exposure control, adjustment of mA and/or kV according to patient size. COMPARISON: None. FINDINGS: Image quality: Diagnostic. ABDOMEN: There several moderately enlarged gastrosplenic varices measuring up to 1.3 cm diameter most notably near the gastric fundus. Ophu-pj-pllwwngm nonspecific wall thickening of the gastroesophageal junction into the stomach, duodenum and proximal jejunum, predominately at the fundus and proximal gastric body measuring up to 2 cm thickness some of which commonly artifact from partial nondistention however given the history of epigastric pain gastritis, duodenitis, gastroenteritis or other process could be considered. Follow-up suggested. If indicated correlation with direct visualization and os could be could be considered. Mild diffuse low-attenuation of the liver commonly hepatic steatosis or intrinsic hepatic disease with some prominence of the left lobe extends towards the spleen. Cholelithiasis with a 6 mm calcified gallstone near the gallbladder neck but without gallbladder wall thickening or pericholecystic fluid. Moderate calcifications of the abdominal aorta and iliac vessels. Moderate diverticulosis most notably distal descending, sigmoid colon with some wall thickening of the sigmoid colon more than expected for artifact from partial nondistention and may be related to chronic changes although colitis or diverticulitis could be considered. No significant pericolonic edema, no free gas, no free fluid. Pessary device is noted in place. Nonspecific wall thickening distal rectum/anus commonly artifact from partial nondistention or related to hemorrhoids although proctitis or other anal rectal lesion could be considered. Normal nondilated appendix. Moderate degenerative changes lower thoracic, lumbar spine most notably at L3-4, L4-5, L5-S1 with suspected neural foraminal narrowing no gross CT evidence of central stenosis. Lower Chest: No significant findings. Biliary ducts: No biliary dilation. Pancreas: No ductal dilation. Spleen: Size is within normal limits. Adrenal Glands: No adrenal nodules. Kidneys and Ureters: No hydronephrosis. No solid mass. No complex renal cystic lesion which requires follow up. Stomach and Bowel: Normal colonic caliber, without significant wall thickening. Peritoneum: No abnormal intraperitoneal fluid. No free air. Ventral Wall: No significant ventral hernia. Abdominal Nodes: No retroperitoneal or mesenteric adenopathy by size criteria. Vessels: Aorta and inferior vena cava are normal in size. PELVIS: Pelvic Organs: Unremarkable. Bladder: No bladder wall thickening, accounting for underdistention. Pelvic Nodes: No enlarged lymph nodes. Miscellaneous: No inguinal hernias are seen. Bones: No aggressive osseous abnormality. IMPRESSION: Wall thickening of the stomach duodenum and proximal jejunum as discussed above. Hepatic steatosis, cholelithiasis without CT evidence of cholecystitis. Diverticulosis with wall thickening of the sigmoid colon and distal rectum/anus as discussed above. Chronic findings as above. Dictated by: Elias Rudolph M.D. on 09/25/2024 at 16:30 Approved by: Elias Rudolph M.D. on 09/25/2024 at 16:43
== END ==
LOC: CT 13:23
PROVIDERS: PCP Family Medicine; Referring Provider Family Medicine; Visit Provider Family Medicine
DX: K57.90 Diverticulosis of intestine, part unspecified, without perforation or abscess without bleeding (principal); I86.4 Gastric varices; R10.9 Unspecified abdominal pain; K80.20 Calculus of gallbladder without cholecystitis without obstruction; I70.0 Atherosclerosis of aorta; M47.814 Spondylosis without myelopathy or radiculopathy, thoracic region; M47.816 Spondylosis without myelopathy or radiculopathy, lumbar region; M47.817 Spondylosis without myelopathy or radiculopathy, lumbosacral region; K76.0 Fatty (change of) liver, not elsewhere classified
CPT/HCPCS: 74177; Q9967

== ENCOUNTER → 2024-10-17 08:01 | Outpatient (CLI) | payer MEDICARE, BC, SELFPAY ==
--- NOTE | 2024-10-17 08:02 | DI.ECHO.S_ITS ---
[facility] : : [address] : : [place] : : [id number] : : Phone: [phone] Echocardiogram Report + + :Name: FREDA ABRAMS Study Date: 10/17/2024 Height: 65 in : :Hospital ReadingLocation: Weight: 190 lb : : Gender: Female BSA: 1.9 m2 : :: 1945 Age: 79 yrs BP: 129/81 mmHg: :Reason For Study: CHEST PAIN : :Ordering Physician: MARGO, : :MARIA EUGENIA Performed By: Radha Altman : :Referring: MARIA EUGENIA ARAGON : + + Interpretation Summary 1) Normal left ventricular thickness, size, wall motion, and systolic function (EF 55-60%). 2) Normal right ventricular size and function. 3) There is mild to moderate mitral regurgitation. 4) There is mild aortic stenosis (valve area 1.9cm2, mean gradient 6mmHg, severity ratio 0.52). 5) No prior Echo available for comparison. Procedure: A two-dimensional transthoracic echocardiogram with color flow and Doppler was performed. The study quality was technically adequate. Patient has breast implants. There is no prior echocardiogram noted for this patient. The patient was in sinus rhythm with heart rates between 68-72 bpm during the exam. Left Ventricle: The left ventricle is normal in size and wall thickness. The ejection fraction is estimated to be 55-60%. Left ventricular systolic function appears normal without focal wall motion abnormalities. Right Ventricle: The right ventricle is normal in size and function. Atria: The left atrial size is normal. Right atrial size is normal. There is no Doppler evidence for an interatrial shunt. Mitral Valve: The mitral valve leaflets appear mildly thickened, but open well. There is mild to moderate mitral regurgitation. Aortic Valve: There is mild aortic valve sclerosis. The aortic valve opens well. The aortic valve is grossly normal. There is mild aortic stenosis. No aortic regurgitation is present. Tricuspid Valve: The tricuspid valve leaflets are thin and pliable. There is mild tricuspid regurgitation. The right ventricular systolic pressure is estimated to be at least 28 mmHg based on an estimated right atrial pressure of 3 mm Hg. Pulmonic Valve: The pulmonic valve is not well visualized. There is no pulmonic valvular regurgitation. Great Vessels: The aortic root is normal size. The dimensions of the ascending aorta are normal. The IVC is of normal diameter and collapses greater than 50% with a sniff. This suggests a low right atrial pressure of 3 mm Hg. Pericardium/ Pleura There is no pericardial effusion. There is no pleural effusion. MMode/2D Measurements & Calculations LVIDd: 5.1 cm LVOT diam: 2.1 cm LVIDs: 3.7 cm Ao root diam: 2.9 cm FS: 27.8 % asc Aorta Diam: 3.5 cm IVSd: 0.85 cm Ao Arch Diam (Prox Trans): 2.4 cm LVPWd: 0.80 cm LV sanchez. diameter/BSA (cm/m^2): 2.6 LV sys. diameter/BSA (cm/m^2): 1.9 LA A2 area: 19.7 cm2 RA long axis: 5.0 cm LA A4 area: 19.9 cm2 RA area: 14.8 cm2 LA length (vol): 5.5 cm RA vol: 36.8 ml LA vol: 60.3 ml RA : 19.0 ml/m2 LA vol index: 31.2 ml/m2 IVC diam: 1.3 cm RVD1 (basal): 3.1 cm RVD2 (mid): 2.9 cm TAPSE: 2.2 cm Doppler Measurements & Calculations Ao V2 max: 158.3 cm/sec LVOT Max Jake: 85.4 cm/sec Ao V2 mean: 115.7 cm/sec LV V1 max P.9 mmHg Ao max P.1 mmHg LV V1 VTI: 18.1 cm Ao mean P.8 mmHg TISHA(I,D): 1.8 cm2 Ao V2 VTI: 34.8 cm TISHA(V,D): 1.9 cm2 sev ratio: 0.52 TISHA indexed to BSA (cm^2/m^2): 0.93 MV E max jake: 67.5 cm/sec TR max jake: 235.1 cm/sec MV A max jake: 90.2 cm/sec TR max P.1 mmHg MV E/A: 0.75 PA V2 max: 77.5 cm/sec Med Peak E' Jake: 5.9 cm/sec PA V2 mean: 53.3 cm/sec E/E' med: 11.4 PA mean P.3 mmHg Lat Peak E' Jake: 9.8 cm/sec E/E' lat: 6.9 E/e' average: 9.1 MV dec time: 0.22 sec MR ERO: 0.18 cm2 MR PISA: 2.5 cm2 SV(LVOT): 62.9 ml MR flow rate: 104.8 cm3/sec MR PISA radius: 0.63 cm Reading Physician:02:19 PM
== END ==
LOC: ECHO 08:01
PROVIDERS: PCP Family Medicine; Referring Provider Family Medicine; Visit Provider Family Medicine
DX: I08.3 Combined rheumatic disorders of mitral, aortic and tricuspid valves (principal); K57.90 Diverticulosis of intestine, part unspecified, without perforation or abscess without bleeding; R07.9 Chest pain, unspecified
CPT/HCPCS: 93306

== ENCOUNTER 2024-12-02 09:36 | Emergency (ER) | payer MEDICARE, BC, SELFPAY ==
[2024-12-02 09:38] VITALS: BP 143/67; PULSE 83; RESP 14; TEMP 36.6; O2SAT 94; BMI 31.6
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
--- NOTE | 2024-12-02 09:46 | DI.RAD.S_ITS ---
PROCEDURE: XR ANKLE LT MIN 3V INDICATIONS: ankle/foot injury TECHNIQUE: 3 views of the ankle were acquired. COMPARISON: None. FINDINGS: Bones: No fractures or dislocations. Ankle mortise is normally aligned. No suspicious bony lesions. Soft tissues: No tibiotalar joint effusion. Achilles tendon appears normal. Soft tissue swelling is present about the ankle. IMPRESSION: Soft tissue swelling without acute bony abnormality or significant effusion. Dictated by: Sheila Jara M.D. on 12/02/2024 at 9:19 Approved by: Sheila Jara M.D. on 12/02/2024 at 9:20
--- NOTE | 2024-12-02 09:46 | DI.RAD.S_ITS ---
PROCEDURE: XR FOOT LT MIN 3V INDICATIONS: ankle/foot injury TECHNIQUE: 3 views of the foot were acquired. COMPARISON: [facility], , XR FOOT LT MIN 3V, 12/18/2019, 15:18. FINDINGS: Bones: No fractures or dislocations. No suspicious bony lesions. Soft tissues: No tibiotalar joint effusion. Achilles tendon appears normal. IMPRESSION: No acute bony abnormality. Dictated by: Sheila Jara M.D. on 12/02/2024 at 9:16 Approved by: Sheila Jara M.D. on 12/02/2024 at 9:18
[2024-12-02 10:53] VITALS: BP 125/65; PULSE 72; RESP 18; O2SAT 94
== END 2024-12-02 10:59 | disposition home or self-care (01) ==
PROVIDERS: Emergency Provider Family Medicine; PCP Family Medicine
DX: S93.492A Sprain of other ligament of left ankle, initial encounter (principal); S90.32XA Contusion of left foot, initial encounter; X58.XXXA Exposure to other specified factors, initial encounter
CPT/HCPCS: 73610; 73630; 99281; 99283

== ENCOUNTER → 2025-03-19 10:50 | Outpatient (CLI) | payer MEDICARE, BC, SELFPAY ==
[2025-03-19 11:54] LABS: Cholesterol 190 mg/dL (140-199); HDL Cholesterol 57 mg/dL (40-60); Triglycerides 155 mg/dL (35-150)
[2025-03-19 12:08] LABS: Hemoglobin A1C% w Est Avg Glu 6.8 % (4.0-6.0)
== END ==
PROVIDERS: PCP Family Medicine; Referring Provider Family Medicine; Visit Provider Family Medicine
DX: E11.9 Type 2 diabetes mellitus without complications (principal); E78.2 Mixed hyperlipidemia
CPT/HCPCS: 36415; 80061; 83036

== ENCOUNTER → 2025-03-20 07:57 | Outpatient (CLI) | payer MEDICARE, BC, SELFPAY ==
[2025-03-20 08:51] LABS: Alanine Aminotransferase 20 IU/L (<35); Albumin 4.4 g/dL (3.5-5.0); Albumin Globulin Ratio 1.6 (1.0-2.8); Alkaline Phosphatase 75 U/L (38-126); Blood Urea Nitrogen 19 mg/dL (7-17); Calcium 9.3 mg/dL (8.4-10.2); Carbon Dioxide 26 mmol/L (22-32); Chloride 104 mmol/L (98-107); Estimated Glomerular Filt Rate > 60 mL/min (>60); Globulin 2.7 g/dL (1.7-4.1); Glucose 144 mg/dL (70-99); HEMOLYSIS 16 (0-50); Potassium 4.6 mmol/L (3.4-5.1); Sodium 139 mmol/L (137-145); Total Protein 7.1 g/dL (6.3-8.2)
[2025-03-20 09:17] LABS: TSH w/ Reflex to FT4 6.38 uIU/mL (0.47-4.68)
[2025-03-20 13:11] LABS: Free T4, Direct Thyroxine 0.78 ng/dL (0.78-2.19)
== END ==
PROVIDERS: PCP Family Medicine; Referring Provider Family Medicine; Visit Provider Family Medicine
DX: E11.9 Type 2 diabetes mellitus without complications (principal); E78.2 Mixed hyperlipidemia
CPT/HCPCS: 36415; 80053; 84439; 84443